=== PATIENT | male | born 1975 | race Hispanic/Latino ===

== ENCOUNTER 2019-03-23 22:56 | Inpatient (IN) | payer SELFPAY ==
[~2019-03-23] VITALS: Ht 165.1 cm; Wt 61.7 kg
[2019-03-23] MEDS ORDERED: SODIUM CHLORIDE 0.9% 1000ML 1,000 ML IV STA (23:01)
[2019-03-23] MEDS ORDERED: PROMETHAZINE 25MG/ NS 50ML (IV) IV ONE (23:15)
[2019-03-23] MEDS ORDERED: KETOROLAC TROMETHAMINE 30 MG/ML VIAL IV ONE (23:15)
[2019-03-23] MEDS ORDERED: FAMOTIDINE 20 MG/2 ML VIAL IV ONE ×2 (23:15→23:17)
[2019-03-23] MEDS ORDERED: KETOROLAC TROMETHAMINE 30 MG/ML VIAL ONE (23:16)
[2019-03-23] MEDS ORDERED: PROMETHAZINE HCL (IM) 25 MG/ML VIAL ONE (23:16)
[2019-03-23] MEDS ORDERED: SODIUM CHLORIDE 0.9% 1000ML 1,000 ML ONE (23:16)
[2019-03-23] MEDS ORDERED: IOPAMIDOL 370 MG/ML 200 ML INFUS..BTL INJ ONE (23:36)
[2019-03-23] MEDS ORDERED: SODIUM CHLORIDE 0.9% 50ML 50 ML ONE (23:36)
[2019-03-24] VITALS (10 sets, daily range): BP systolic 138–171; BP diastolic 88–107
--- NOTE | 2019-03-24 00:33 | Diagnostic Imaging Report ---
EXAM: CT Abdomen and Pelvis WITH contrast INDICATION: Abdominal pain COMPARISON: None. TECHNIQUE: Abdomen and pelvis were scanned utilizing a multidetector helical scanner from the lung base to the pubic symphysis after administration of IV contrast. Coronal and sagittal reformations were obtained. Routine protocol was performed. Scan was performed when during portal venous phase. IV CONTRAST: 100 mL of Isovue 370 ORAL CONTRAST: None COMPLICATIONS: None RADIATION DOSE: Total DLP: 328 mGy*cm Estimated effective dose: (DLP x 0.015 x size factor) mSv CTDIvol has been reviewed. It is below the limits set by the Radiation Protocol Committee (RPC). Dose modulation, iterative reconstruction, and/or weight based adjustment of the mA/kV was utilized to reduce the radiation dose to as low as reasonably achievable. FINDINGS: LINES and TUBES: None. LOWER THORAX: Unremarkable HEPATOBILIARY: No focal hepatic lesions. No biliary ductal dilation. GALLBLADDER: No radio-opaque stones or sludge. No wall thickening. SPLEEN: No splenomegaly. PANCREAS: No focal masses or ductal dilatation. Calcifications in the pancreatic tail. Mild peripancreatic edema. Mild pancreatic atrophy. ADRENALS: No adrenal nodules KIDNEYS/URETERS: Kidneys enhance symmetrically. No hydronephrosis. No cystic or solid mass lesions. No stones. GI TRACT: No abnormal distention, wall thickening, or evidence of bowel obstruction. Colonic diverticulosis without diverticulitis. Appendix is not clearly identified. There is however no fat stranding or adenopathy in the right lower quadrant to suggest appendicitis. PELVIC ORGANS/BLADDER: Unremarkable. LYMPH NODES: No lymphadenopathy. VESSELS: Unremarkable. PERITONEUM / RETROPERITONEUM: No free air or fluid.A 1.1 cm peripherally calcified nodule in the right lower paracolic gutter is likely a benign calcified avulsed epiploic appendage. BONES: Left acetabular and partially visualized left proximal femoral fixation hardware appears intact. Advanced secondary degenerative changes in the left hip with mild. Healed left acetabular fracture deformity. SOFT TISSUES: Unremarkable. IMPRESSION: 1. Findings of chronic pancreatitis. Mild peripancreatic edema is suggestive of acute edematous pancreatitis. 2. Advanced secondary degenerative changes in the left hip with healed fixated left acetabular fracture deformity. Partially visualized left proximal femoral intramedullary bryn and screw fixation hardware appears intact. 3. Colonic diverticulosis without diverticulitis. Signed by: Humberto Hughes DO on 03/24/2019 12:30 AM
[2019-03-24] MEDS ORDERED: MORPHINE SULFATE INJ 4 MG/ML INJ 1ML IV PRN ×2 (00:45→01:30)
--- NOTE | 2019-03-24 00:59 | NUR ---
[facility] notified of need for transfer. 45 minute eta given
--- NOTE | 2019-03-24 01:00 | NUR ---
pt states he does not have a allergy to morphine as long as he gets something for nausea.
--- OUTSIDE RECORDS SUMMARY | 2019-03-24 01:05 | XMS REPORT ---
Author [email or web address] Address Unknown Phone Unavailable Care Team Providers Care [facility] [employer] Name Role Phone Anali MALCOLM Unavailable Unavailable Problems This patient has no known problems. Allergies, Adverse Reactions, Alerts This patient has no known allergies or adverse reactions. Medications This patient has no known medications. Results Test Description Test Time Test Comments Text Results Atomic Results Result Comments CT ABD/PEL WITH CONTRAST-HOPD 2019-03-24 00:08:00 [place] [id number] Patient Name: MICHELLE DIAZ MR #: [id number] : 1975 Age/Sex: 43/M Req #: [id number] Adm Physician: Ordered by: ROBY MALCOLM MD Report #: [id number] Location: [facility] Room/Bed: Procedure: [id number] HOPD/CT ABD/PEL WITH CONTRAST-HOPD Exam Date: 03/23/19 Exam Time: 2350 REPORT STATUS: Signed EXAM: CT Abdomen and Pelvis WITH contrast INDICATION: Abdominal pain COMPARISON: None. TECHNIQUE: Abdomen and pelvis were scanned utilizing a multidetector helical scanner from the lung base to the pubic symphysis after administration of IV contrast. Coronal and sagittal reformations were obtained. Routine protocol was performed. Scan was performed when during portal venous phase. IV CONTRAST: 100 mL of Isovue 370 ORAL CONTRAST: None COMPLICATIONS: None RADIATION DOSE: Total DLP: 328 mGy*cm Estimated effective dose: (DLP x 0.015 x size factor) mSv CTDIvol has been reviewed. It is below the limits set by the Radiation Protocol Committee (RPC). Dose modulation, iterative reconstruction, and/or weight based adjustment of the mA/kV was utilized to reduce the radiation dose to as low as reasonably achievable. FINDINGS: LINES and TUBES: None. LOWER THORAX: Unremarkable HEPATOBILIARY: No focal hepatic lesions. No biliary ductal dilation. GALLBLADDER: No radio-opaque stones or sludge. No wall thickening. SPLEEN: No splenomegaly. PANCREAS: No focal masses or ductal dilatation. Calcifications in the pancreatic tail. Mild peripancreatic edema. Mild pancreatic atrophy. ADRENALS: No adrenal nodules KIDNEYS/URETERS: Kidneys enhance symmetrically. No hydronephrosis. No cystic or solid mass lesions. No stones. GI TRACT: No abnormal distention, wall thickening, or evidence of bowel obstruction. Colonic diverticulosis without diverticulitis. Appendix is not clearly identified. There is however no fat stranding or adenopathy in the right lower quadrant to suggest appendicitis. PELVIC ORGANS/BLADDER: Unremarkable. LYMPH NODES: No lymphadenopathy. VESSELS: Unremarkable. PERITONEUM / RETROPERITONEUM: No free air or fluid.A 1.1 cm peripherally calcified nodule in the right lower paracolic gutter is likely a benign calcified avulsed epiploic appendage. BONES: Left acetabular and partially visualized left proximal femoral fixation hardware appears intact. Advanced secondary degenerative changes in the left hip with mild. Healed left acetabular fracture deformity. SOFT TISSUES: Unremarkable. IMPRESSION: 1. Findings of chronic pancreatitis. Mild peripancreatic edema is suggestive of acute edematous pancreatitis. 2. Advanced secondary degenerative changes in the left hip with healed fixated left acetabular fracture deformity. Partially visualized left proximal femoral intramedullary bryn and screw fixation hardware appears intact. 3. Colonic diverticulosis without diverticulitis. Signed by: Humberto Hughes DO on 03/24/2019 12:30 AM Dictated By: HUMBERTO HUGHES DO Transcribed By: FLORES on 03/24[birth year]1929 COPY TO: ROBY MALCOLM MD
[2019-03-24] MEDS ORDERED: ENALAPRILAT IV INJ 1.25 MG/ML VIAL ONE (01:14)
[2019-03-24] MEDS: ENALAPRILAT IV INJ 1.25 MG/ML VIAL IV PRN (01:15)
[2019-03-24] MEDS ORDERED: MORPHINE SULFATE INJ 4 MG/ML INJ 1ML ONE (01:20)
[2019-03-24] MEDS ORDERED: ONDANSETRON HCL INJ 2MG/ML 2ML 2 MG/ML VIAL ONE (01:24)
[2019-03-24] MEDS: ONDANSETRON HCL INJ 2MG/ML 2ML 2 MG/ML VIAL IV PRN ×6 (01:25→21:28)
--- NOTE | 2019-03-24 02:30 | NUR ---
Pt admitted to room 288 via stretcher. Able to transfer to bed from stretcher standby assist. Alert and orient to name, hospital, date, and diagnosis: Pancreatitis. c/o mod upper abd pain that comes and goes. Abd flat, soft, and nondistended. Last BM 03/23, small. 20g IV right FA and 20g IV right AC, flushed with 10mg NS. Oriented to room. Call yee within reach. Will continue to monitor.
[2019-03-24] MEDS ORDERED: INFLUENZA VIRUS VAC SPLIT INJ 0.5 ML SYR IM SCH (03:01)
[2019-03-24] MEDS: D5.45%NS/KCL 20MEQ 1,000 ML IV SCH ×3 (03:07→19:00)
[2019-03-24] MEDS: DIPHENHYDRAMINE HCL INJ 50 MG/ML VIAL IV PRN ×3 (03:08→23:50)
--- NOTE | 2019-03-24 06:50 | NUR ---
RECEIVED REPORT FROM OFF-GOING NURSE. WALKING ROUNDS DONE. PATIENT IS RESTING IN BED. NO ACUTE DISTRESS NOTED. CALL LIGHT WITHIN REACH. BED IN THE LOWEST POSITION.
--- NOTE | 2019-03-24 08:18 | NUR ---
H&P cc: abdominal pain H{PI: 43yoM, PCP unknown, with hx chronic pancreatitis, now with worsening abdominal pain. Admits to having alcohol at a democrat. PMH: chronic pancreatitis, alcohol use PShx: left hip Allergies; see emr Fh/SH; occasional etoh meds; see MAR ROS: no f/c/s/MENDEZ/cp/sob/skin rash/dizziness/back pain/ v/s; revd PE tired appearing anicteric ns1s2 mod bs soft ND; EPIG[employer]UM T[employer]ER no e/t skin dry n. affect a&ox3; gamez labs/meds revd A/P: 43yoM Alcoholic pancreatitis Dehydration Diverticulosis PLAN IVF; NPO pepcid; scd Check labs Andrew Adams MD, PhD.
[2019-03-24 08:55] LABS: BASOPHILS % 0.3 % (0.0-1.0); EOSINOPHILS # (AUTO) 0.1 (0.0-0.4); EOSINOPHILS % 0.8 % (0.0-6.0); HEMATOCRIT 37.3 % (38.2-49.6); LYMPHOCYTES # (AUTO) 1.4 (1.0-3.2); LYMPHOCYTES % 15.8 % (18.0-39.1); MEAN CORPUSCULAR HEMOGLOBIN 33.9 pg (28-32); MEAN CORPUSCULAR HGB CONC 34.9 g/dL (31-35); MEAN CORPUSCULAR VOLUME 97.1 fL (81-99); MONOCYTES # (AUTO) 0.7 (0.2-0.8); MONOCYTES % 7.6 % (4.4-11.3); NEUTROPHILS # (AUTO) 6.8 (2.1-6.9); NEUTROPHILS % 75.1 % (38.7-80.0); PLATELET COUNT 178 x10e3/uL (140-360); RED BLOOD COUNT 3.84 x10e6/uL (4.3-5.7); RED CELL DISTRIBUTION WIDTH 12.8 % (11.7-14.4)
[2019-03-24] MEDS ORDERED: FAMOTIDINE 20 MG/2 ML VIAL IV SCH (09:00)
[2019-03-24 09:15] LABS: ANION GAP 10.8 mmol/L (8-16); BLOOD UREA NITROGEN 8 mg/dL (7-26); BUN/CREATININE RATIO 11 (6-25); CALCIUM 8.4 mg/dL (8.4-10.2); CARBON DIOXIDE 26 mmol/L (22-29); CHLORIDE 105 mmol/L (98-107); CREATININE, SERUM 0.74 mg/dL (0.72-1.25); EST GLOMERULAR FILTRATION RATE > 60 ML/MIN (60-); GLUCOSE 160 mg/dL (74-118); POTASSIUM 3.8 mmol/L (3.5-5.1); SODIUM 138 mmol/L (136-145)
[2019-03-24 09:29] LABS: ALBUMIN 3.7 g/dL (3.5-5.0); BILIRUBIN,DIRECT 0.2 mg/dL (0.0-0.5)
[2019-03-24] MEDS: HYDROMORPHONE 1MG/1ML INJ IV PRN ×4 (09:30→21:28)
[2019-03-24] MEDS ORDERED: HYDROMORPHONE 1MG/1ML INJ IV PRN (14:15)
[2019-03-24] MEDS ORDERED: HYDROMORPHONE 1MG/1ML INJ IV ONE (16:42)
--- NOTE | 2019-03-24 16:44 | NUR ---
CALLED DR. HERNDON TO NOTIFY HIM THAT PATIENT IS STATING THAT THE PAIN MEDICATION IS ONLY LASTING HIM ABOUT 2 HOURS. PER MD, CHANGE THE DILAUDID 0.5MG Q3H TO DILAUDID 1MG Q4H AND ONE TIME DOSE OF 0.5MG DILAUDID NOW.
--- NOTE | 2019-03-24 19:07 | NUR ---
Report given to oncoming nurse. Walking rounds done. Patient is resting in bed. No acute distress noted. Call light within reach. Bed in the lowest position.
--- NOTE | 2019-03-24 19:10 | NUR ---
PT IS RESTING IN BED. RESPIRATION IS EVEN AND UNLABORED, NO DISTRESS NOTED. BED IN THE LOWEST POSITION, LOCKED, AND CALL LIGHT WITHIN REACH. WILL CONTINUE TO MONITOR.
[2019-03-25] VITALS (8 sets, daily range): BP systolic 138–166; BP diastolic 78–98
[2019-03-25] MEDS: HYDROMORPHONE 1MG/1ML INJ IV PRN ×7 (01:28→22:22)
[2019-03-25] MEDS: ONDANSETRON HCL INJ 2MG/ML 2ML 2 MG/ML VIAL IV PRN ×6 (01:28→22:22)
[2019-03-25] MEDS: ENALAPRILAT IV INJ 1.25 MG/ML VIAL IV PRN (01:28)
[2019-03-25] MEDS: D5.45%NS/KCL 20MEQ 1,000 ML IV SCH ×4 (02:18→22:22)
--- NOTE | 2019-03-25 02:18 | NUR ---
PT COMPLAIN OF PAIN NOT BEING CONTROLLED. PER DR HERNDON CHANGE DILAUDID 1MG IV Q4H PRN TO Q3H PRN. WILL CONTINUE TO MONITOR.
--- NOTE | 2019-03-25 06:40 | NUR ---
RECEIVED REPORT FROM OFF-GOING NURSE. WALKING ROUNDS DONE. PATIENT IS RESTING IN BED. NO ACUTE DISTRESS NOTED. CALL LIGHT WITHIN REACH. BED IN THE LOWEST POSITION.
[2019-03-25 06:48] LABS: BASOPHILS % 0.1 % (0.0-1.0); EOSINOPHILS # (AUTO) 0.1 (0.0-0.4); EOSINOPHILS % 0.8 % (0.0-6.0); HEMATOCRIT 38.9 % (38.2-49.6); HEMOGLOBIN 13.1 g/dL (14.0-18.0); LYMPHOCYTES # (AUTO) 1.1 (1.0-3.2); LYMPHOCYTES % 13.4 % (18.0-39.1); MEAN CORPUSCULAR HEMOGLOBIN 33.6 pg (28-32); MEAN CORPUSCULAR HGB CONC 33.7 g/dL (31-35); MEAN CORPUSCULAR VOLUME 99.7 fL (81-99); MONOCYTES # (AUTO) 0.6 (0.2-0.8); NEUTROPHILS # (AUTO) 6.1 (2.1-6.9); NEUTROPHILS % 78.3 % (38.7-80.0); PLATELET COUNT 189 x10e3/uL (140-360); RED CELL DISTRIBUTION WIDTH 13.1 % (11.7-14.4)
[2019-03-25 07:08] LABS: ALANINE AMINOTRANSFERASE 20 IU/L (0-55); ALBUMIN/GLOBULIN RATIO 1.4 (0.8-2.0); ALKALINE PHOSPHATASE 70 IU/L (40-150); AMYLASE 171 U/L (25-125); ANION GAP 10.1 mmol/L (8-16); BLOOD UREA NITROGEN < 5 mg/dL (7-26); CALCIUM 9.1 mg/dL (8.4-10.2); CARBON DIOXIDE 27 mmol/L (22-29); CHLORIDE 102 mmol/L (98-107); CREATININE, SERUM 0.74 mg/dL (0.72-1.25); EST GLOMERULAR FILTRATION RATE > 60 ML/MIN (60-); GLUCOSE 120 mg/dL (74-118); LIPASE 276 U/L (8-78); POTASSIUM 4.1 mmol/L (3.5-5.1); SODIUM 135 mmol/L (136-145)
[2019-03-25 07:09] LABS: BUN/CREATININE RATIO 7 (6-25)
--- NOTE | 2019-03-25 07:18 | NUR ---
IM-progress note O/N no events ROS: no f/c/s/MENDEZ/cp/sob/skin rash/dizziness/back pain/ v/s; revd PE tired appearing anicteric ns1s2 mod bs soft ND; EPIGASTRIUM TENDER no e/t skin dry n. affect a&ox3; gamez labs/meds revd A/P: 43yoM Alcoholic pancreatitis Dehydration Diverticulosis PLAN IVF; NPO pepcid; scd Check labs 03/25 abdominal pain- adjust pain meds; cont IVF; advance to CLD Andrew Adams MD, PhD.
[2019-03-25] MEDS: DIPHENHYDRAMINE HCL INJ 50 MG/ML VIAL IV PRN ×3 (07:35→20:43)
[2019-03-25] MEDS: PANTOPRAZOLE 40 MG 10ML VIAL IV SCH (07:38)
[2019-03-25] MEDS ORDERED: SODIUM CHLORIDE 0.9% 100 ML 100 ML IV SCH (09:00)
[2019-03-25 10:50] LABS: BAND NEUTROPHILS % (MANUAL) 4 %; LYMPHOCYTES % (MANUAL) 15 % (19-48); MONOCYTES % (MANUAL) 7 % (3.4-9.0); NEUTROPHILS % (MANUAL) 74 % (40-74); PLATELET ESTIMATE ADEQUATE; PLATELET MORPHOLOGY COMMENT NORMAL
[2019-03-25 10:51] LABS: RBC MORPHOLOGY COMMENT NORMAL
--- NOTE | 2019-03-25 12:28 | NUR ---
Nutrition Screen Note RD Recommendation for Physician: Advance diet as tolerated to a regular diet Plan of Care: RD following, monitoring for tolerance and adequacy Nutrition reason for involvement: Nutrition Risk Trigger -chronic pancreatitis Primary Diagnose(s): Pancreatitis PMH: Chronic pancreatitis Ht:65 in Wt:136lb BMI:22.6 kg/m2 IBW:136lb +/-10% RD Assessment: (03/25/2019) Chart reviewed. Labs and meds reviewed. Initial encounter with Patient. Nausea is resolved and appetite has returned. Pt denies any difficulty chewing or swallowing. No known food allergies. Pt is dentate. No wt changes. Pt was eating well [employer] just prior to onset of pancreatitis symptoms after drinking. Current Diet: Clear liquid diet Malnutrition Evaluation (03/25/2019) The patient does not meet criteria for a specified degree of malnutrition at this time. Will re-evaluate at follow-up as appropriate. Diet Education Needs Assessment: Diet education not indicated. Nutrition Care Level: Low Signed: Francisco Duran RD, LD, [facility]
--- NOTE | 2019-03-25 19:07 | NUR ---
Report given to oncoming nurse. Walking rounds done. Patient is resting in bed. No acute distress noted. Girlfriend at bedside. Call light within reach. Bed in the lowest position.
--- NOTE | 2019-03-25 19:10 | NUR ---
PT IS RESTING IN BED WITH GIRLFRIEND AT BEDSIDE. RESPIRATION IS EVEN AND UNLABORED, NO DISTRESS NOTED. BED IN THE LOWEST POSITION, LOCKED, AND CALL LIGHT WITHIN REACH. WILL CONTINUE TO MONITOR.
[2019-03-26] VITALS (8 sets, daily range): BP systolic 133–158; BP diastolic 72–100
[2019-03-26] MEDS: D5.45%NS/KCL 20MEQ 1,000 ML IV SCH ×4 (01:42→21:34)
[2019-03-26] MEDS: ONDANSETRON HCL INJ 2MG/ML 2ML 2 MG/ML VIAL IV PRN ×4 (01:43→13:45)
[2019-03-26] MEDS: HYDROMORPHONE 1MG/1ML INJ IV PRN ×4 (01:43→13:45)
[2019-03-26] MEDS: DIPHENHYDRAMINE HCL INJ 50 MG/ML VIAL IV PRN ×2 (02:40→09:45)
--- NOTE | 2019-03-26 06:30 | NUR ---
Received report from off-going nurse. Walking rounds done. Patient is resting in bed. No acute distress noted. Call light within reach. Bed in the lowest position.
[2019-03-26] MEDS: PANTOPRAZOLE 40 MG 10ML VIAL IV SCH (08:20)
--- NOTE | 2019-03-26 09:21 | NUR ---
IM-progress note O/N no events ROS: no f/c/s/MENDEZ/cp/sob/skin rash/dizziness/back pain/ v/s; revd PE tired appearing anicteric ns1s2 mod bs soft ND; EPIGASTRIUM TENDER no e/t skin dry n. affect a&ox3; gamez labs/meds revd A/P: 43yoM Alcoholic pancreatitis Dehydration Diverticulosis PLAN IVF; NPO pepcid; scd Check labs 03/25 abdominal pain- adjust pain meds; cont IVF; advance to CLD 03/26 cont care; Andrew Adams MD, PhD.
[2019-03-26] MEDS: DIPHENHYDRAMINE HCL 25 MG CAP PO PRN ×2 (15:45→21:55)
[2019-03-26] MEDS: HYDROCODONE/APAP 5MG-325MG TAB PO PRN ×2 (17:55→21:55)
[2019-03-26] MEDS: ONDANSETRON HCL 4 MG ORAL DISINTEGRATING TAB PO PRN ×2 (17:56→21:55)
--- NOTE | 2019-03-26 18:56 | NUR ---
REPORT GIVEN TO ONCOMING NURSE. WALKING ROUNDS DONE. PATIENT IS RESTING IN BED. NO ACUTE DISTRESS NOTED. GIRLFRIEND AT BEDSIDE. CALL LIGHT WITHIN REACH. BED IN THE LOWEST POSITION.
[2019-03-27] VITALS (7 sets, daily range): BP systolic 118–157; BP diastolic 81–94
[2019-03-27] MEDS: HYDROCODONE/APAP 5MG-325MG TAB PO PRN (01:55)
[2019-03-27] MEDS: ONDANSETRON HCL 4 MG ORAL DISINTEGRATING TAB PO PRN (01:55)
[2019-03-27] MEDS: D5.45%NS/KCL 20MEQ 1,000 ML IV SCH (02:01)
--- NOTE | 2019-03-27 07:20 | NUR ---
D/C summary Principal Dx: Alcoholic pancreatitis Dehydration Diverticulosis Secondary dx: Alcohol use PLAN IVF; NPO pepcid; scd Check labs 03/25 abdominal pain- adjust pain meds; cont IVF; advance to CLD 03/26 cont care; 03-27 advance diet; d/c planning; d/c home f/u 1 week stable d/c>35mins Andrew Adams MD, PhD.
--- NOTE | 2019-03-27 07:30 | NUR ---
PT IN BED RESTING NO DISTRESS NTOED DENIES PAIN
[2019-03-27] MEDS: PANTOPRAZOLE 40 MG 10ML VIAL IV SCH (09:00)
--- NOTE | 2019-03-27 10:49 | NUR ---
PT TOLERATING DIET WELL,NO C/O PAIN OR NAUSEA.SPOKE WITH DR KATRINA SWENSON FOR PT TO GO HOME
[2019-03-27] MEDS ORDERED: ZOFRAN4 MG PO (10:59)
[2019-03-27] MEDS ORDERED: PANTOPRAZOLE SO40 MG PO (10:59)
== END 2019-03-27 15:28 | disposition home or self-care (01) | DRG 440 ==
LOC: ER 22:56 → ERHOLD 03-24 01:02 → MED/SURG3 03-24 02:27 → OBSVTOIN 03-24 10:58
PROVIDERS: ADMIT Internal Medicine; ATTEND Internal Medicine
DX: K86.0 Alcohol-induced chronic pancreatitis (principal); E86.0 Dehydration; K57.90 Diverticulosis of intestine, part unspecified, without perforation or abscess without bleeding; F10.10 Alcohol abuse, uncomplicated
CPT/HCPCS: 36415; 74177; 80048; 80053; 80076; 82150; 83690; 85025; 99284; J1170; J1200; J1885; J2270; J2405; J2550; J7030; Q0162; Q9967